=== PATIENT | female | born 2000 | race Caucasian/White ===

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

== ENCOUNTER → 2019-04-13 | Outpatient (CLI) | payer OTHER | END | disposition home or self-care (01) | LOC: LAB SHORT 14:00 → LAB 14:00 | DX: R82.90 Unspecified abnormal findings in urine (principal); R35.0 Frequency of micturition | CPT/HCPCS: 87077; 87086; 87186 ==

== ENCOUNTER → 2020-12-22 | Outpatient (CLI) | payer OTHER | END | disposition home or self-care (01) | LOC: LAB 17:25 → LAB SHORT 17:25 | PROVIDERS: Advanced Practice Midwife | DX: Z01.419 Encounter for gynecological examination (general) (routine) without abnormal findings (principal) | CPT/HCPCS: G0123 ==

== ENCOUNTER 2024-06-04 00:22 | Emergency (ER) | payer OTHER ==
[~2024-06-04] VITALS: Ht 162.6 cm; Wt 145.2 kg
[2024-06-04 00:50] VITALS: BP 158/96
== END 2024-06-04 03:49 | disposition home or self-care (01) ==
LOC: ER 00:22
DX: S63.614A Unspecified sprain of right ring finger, initial encounter (principal); X58.XXXA Exposure to other specified factors, initial encounter; Y93.71 Activity, boxing
CPT/HCPCS: 73130; 99283-25

== ENCOUNTER 2025-03-29 02:04 | Emergency (ER) | payer OTHER ==
[~2025-03-29] VITALS: Ht 162.6 cm; Wt 140.6 kg
[2025-03-29 02:20] VITALS: BP 179/105
== END 2025-03-29 03:52 | disposition home or self-care (01) ==
LOC: ER 02:04
DX: R51.9 Headache, unspecified (principal); Z59.89 Other problems related to housing and economic circumstances; Z79.2 Long term (current) use of antibiotics; Z90.49 Acquired absence of other specified parts of digestive tract
CPT/HCPCS: 99283